=== PATIENT | male | born 2000 | race Two or more races ===

== ENCOUNTER 2024-02-13 12:49 | Emergency (ER) | payer SELFPAY ==
[~2024-02-13] VITALS: Ht 177.8 cm; Wt 75.2 kg
[2024-02-13 13:09] VITALS: BP 117/62; PULSE 120; RESP 18; TEMP 98.4; O2SAT 97
[2024-02-13] MEDS ORDERED: IBU600T PO (13:32)
[2024-02-13] MEDS ORDERED: AMOX500C2 PO (13:32)
== END 2024-02-13 13:42 | disposition home or self-care (01) ==
LOC: ER 12:52
DX: T22.221A Burn of second degree of right elbow, initial encounter (principal); T20.20XA Burn of second degree of head, face, and neck, unspecified site, initial encounter; T31.0 Burns involving less than 10% of body surface; Z79.899 Other long term (current) drug therapy; X08.8XXA Exposure to other specified smoke, fire and flames, initial encounter; Y93.89 Activity, other specified; Y92.89 Other specified places as the place of occurrence of the external cause; Y99.8 Other external cause status